=== PATIENT | male | born 1940 | race Two or more races ===

== ENCOUNTER 2021-02-25 11:12 | Inpatient (IN) | payer OTHER ==
[~2021-02-25] VITALS: Ht 185.4 cm; Wt 73.5 kg
[2021-02-25] MEDS ORDERED: VERELAN240 MG PO (12:16)
[2021-02-25] MEDS ORDERED: AVALIDE 300-121 EACH PO (12:17)
[2021-02-25] MEDS ORDERED: ARICEPT10 MG PO (12:18)
[2021-03-02] MEDS ORDERED: ARICEPT10 MG PO (12:01)
[2021-03-02] MEDS ORDERED: HYDRODIURIL12.5 MG PO (12:01)
[2021-03-02] MEDS ORDERED: PEPCID20 MG PO (12:01)
[2021-03-02] MEDS ORDERED: POM (MEDICAMENTO EN OP (12:01)
[2021-03-02] MEDS ORDERED: AVAPRO300 MG PO (12:01)
[2021-03-02] MEDS ORDERED: Calan Sr 240MG TABLE PO (12:01)
== END 2021-03-02 13:25 | disposition home or self-care (01) | DRG 446 ==
LOC: ER 11:12 → MEDI 22:37 → ER 02-26 01:01 → MEDI 03-02 13:25
PROVIDERS: ADMIT Internal Medicine; ATTEND Internal Medicine
PROC: BW25ZZZ Computerized Tomography (CT Scan) of Chest, Abdomen and Pelvis (ICD-10-PCS; 2021-02-25)
PROC: 0FC98ZZ Extirpation of Matter from Common Bile Duct, Via Natural or Artificial Opening Endoscopic (ICD-10-PCS; principal; 2021-03-01)
DX: K80.50 Calculus of bile duct without cholangitis or cholecystitis without obstruction (principal); I10 Essential (primary) hypertension; G30.8 Other Alzheimer's disease; F02.80 Dementia in other diseases classified elsewhere, unspecified severity, without behavioral disturbance, psychotic disturbance, mood disturbance, and anxiety; Z20.822 Contact with and (suspected) exposure to COVID-19; E78.49 Other hyperlipidemia; R10.9 Unspecified abdominal pain; Z90.49 Acquired absence of other specified parts of digestive tract